=== PATIENT | female | born 1990 | race Caucasian/White ===

== ENCOUNTER 2017-12-21 15:35 | Emergency (ER) | payer OTHER ==
--- NOTE | 2017-12-21 15:43 | ED Physician Documentation ---
General Adult - HISTORIAN Historian: patient - HPI Stated Complaint: vaginal pain Chief Complaint: Female Urogenital Problems Onset: days ago (2) Timing: still present Severity: mild Further Comments: yes (She had a vaginal delivery 10 days ago and two days ago she started to "feel bad" describing fever, fatigue and pain in perineum. She states her mom looked at the area where she had sutures and felt the area was infected.) Last known Well Code/Unknown Code: Unknown - ROS CONST: fever CVS/RESP: denies: chest pain, shortness of breath, cough GI/: denies: abdominal pain, problems urinating, vomiting, nausea, diarrhea MS/SKIN/LYMPH: denies: calf pain, rash NEURO/PSYCH: headache. denies: dizziness - PAST HX Past History: none Surgeries/Procedures: none Immunizations: UTD Allergies/Adverse Reactions: Allergies Allergy/AdvReac Type Severity Reaction Status Date / Time No Known Drug Allergies Allergy Verified 12/21/17 15:52 Home Medications: Ambulatory Orders Medication Instructions Recorded NK [NK] 12/21/17 - SOCIAL HX Smoking History: non-smoker Alcohol Use: none Drug Use: none - FAMILY HX Family History: No - VITAL SIGNS Vital Signs: Vital Signs Temp Pulse Resp BP Pulse Ox 114/73 02/12/14 01:26 - REVIEWED ASSESSMENTS Nursing Assessment Reviewed: Yes Vitals Reviewed: Yes General Adult Physical Exam - PHYSICAL EXAM GENERAL APPEARANCE: no distress EENT: eye inspection normal NECK: normal inspection RESPIRATORY: no resp distress, chest non-tender, breath sounds normal CVS: reg rate & rhythm, heart sounds normal, equal pulses, no murmur ABDOMEN: soft, normal bowel sounds, other (outer vagina examined without use of speculum - no arjun bleeding. Redness noted and warm to touch of pernium. No obvious drainge. Pain to touch per pt ) SKIN: warm/dry, normal color EXTREMITIES: non-tender, normal range of motion, edema (non pitting ) NEURO: oriented X3, CN's nml as tested, motor nml, sensation nml, mood/affect nml, cognition normal Discharge Clincal Impression: Skin infection Referrals: Primary Doctor,No [Primary Care Provider] - 2 Days Additional Instructions: 1. Cipro 500 mg Take 1 by mouth BID X 7 days 2. Flagyl 500 mg Take 1 by mouth every 8 hours x 7 days 3. PUMP AND DUMP breast milk until 24 hours after last dose 4. Keep scheduled appt with OBGYN Saturday 5. Return to ER for any concerns Condition: Stable Disposition: 01 HOME, SELF-CARE Decision to Admit: NO Date of Decison to Admit: 12/21/17 Decision Time: 16:38
[2017-12-21 17:34] VITALS: BP 114/76
[2017-12-22 07:31] LABS: APPEARANCE,URINE CLOUDY (CLEAR); COLOR,URINE AMBER (YELLOW); OCCULT BLOOD,URINE 3+ (NEGATIVE)
== END 2017-12-21 16:43 | disposition home or self-care (01) ==
LOC: ED 15:35
DX: L08.9 Local infection of the skin and subcutaneous tissue, unspecified (principal)
CPT/HCPCS: 81002; 87086